=== PATIENT | female | born 1975 | race Caucasian/White ===

== ENCOUNTER 2017-07-19 13:38 | Emergency (ER) | payer OTHER ==
[~2017-07-19] VITALS: Ht 162.6 cm; Wt 89.4 kg
[2017-07-19] MEDS ORDERED: ALBUTEROL FS 2.5 MG/3 ML VIAL.NEB NEB ONE (14:30)
--- NOTE | 2017-07-19 14:31 | NUR ---
CALLED RT FOR RBEATHING [place].
[2017-07-19] MEDS ORDERED: ALBUTEROL FS 2.5 MG/3 ML VIAL.NEB ONE (14:36)
[2017-07-19 15:49] VITALS: BP 127/72
== END 2017-07-19 15:50 | disposition home or self-care (01) ==
LOC: ER 13:42
DX: J04.0 Acute laryngitis (principal); R07.2 Precordial pain; K21.9 Gastro-esophageal reflux disease without esophagitis
CPT/HCPCS: 71045; 93005; 94640; 99284; A4606; Z7610